=== PATIENT | female | born 1970 | race Caucasian/White ===

== ENCOUNTER 2017-02-01 12:47 | Emergency (ER) | payer BC ==
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
[2017-02-01] MEDS ORDERED: Ketorolac 60 MG/2 ML SDV IM ONE (13:55)
[2017-02-01 14:21] VITALS: BP 163/97
--- NOTE | 2017-02-01 19:06 | CR ---
EXAM DATE: 02/01/17 PATIENT'S AGE: 46 Patient: EVELINE HO Facility: [place], [place] Site . Site : [id number] Study: XRay Spine Lumbar [id number] 1:24:53 PM Ordering Physician: Doctor Garcia Final Report: INDICATION: Pain. Technique: Three views lumbar spine. Comparison: 05/16/2016. Findings: Surgical clips in the abdomen bilaterally. Postsurgical changes involving the stomach with surgical fredi. These were present previously. Nonspecific gas distention of the stomach and small bowel and to lesser extent colon. Few air- fluid levels and small bowel loops nonspecific. No free air. Mild scoliosis. Mild degenerate hypertrophic changes in the spine with moderate narrowing of the L5 interspace and mild narrowing of the L4 and L2 interspaces. No fracture or subluxation lumbar spine. Mid and lower lumbar facet sclerosis and hypertrophy. Remainder negative. Dictated by Matt Beltran MD @ Feb 01 2017 1:29PM (Electronic Signature) Report Signed by Proxy. MICHAEL
== END 2017-02-01 14:15 | disposition home or self-care (01) ==
LOC: MW.ED 12:47
DX: M54.5 Low back pain (principal); Z88.0 Allergy status to penicillin; Z88.8 Allergy status to other drugs, medicaments and biological substances; Z90.49 Acquired absence of other specified parts of digestive tract; Z87.891 Personal history of nicotine dependence; Z88.5 Allergy status to narcotic agent; Z98.84 Bariatric surgery status; Z98.51 Tubal ligation status
CPT/HCPCS: 72100; 96372; 99283; J1885; J2360